=== PATIENT | female | born 1960 | race Caucasian/White ===

== ENCOUNTER 2017-06-05 22:40 | Emergency (ER) | payer OTHER, SELFPAY ==
[2017-06-05 22:42] VITALS: BP 154/85; PULSE 88; RESP 17; TEMP 36.3; O2SAT 95; BMI 22.5
[2017-06-05 23:35] LABS: Bacteria 0 SEEN /hpf (None Seen); Red Blood Cells-Urine 0 SEEN /hpf (0-5); Squamous Epithelial Cells - UA 0 SEEN /hpf (5-10)
[2017-06-05 23:37] LABS: Absolute Lymphocyte Count 0.86 X10^3/ul (0.83-4.51); Absolute Neutrophil Count 4.3 X10^3/uL (2.0-7.7); Basophil# 0.03 X10^3/uL; Basophil% 0.5 % (0-1); Eosinophil# 0.08 X10^3/uL; Eosinophils% 1.3 % (0-5); Hematocrit 41.4 % (37-47); Lymphocyte # 0.86 X10^3/ul (4.0); Lymphocyte % 14.5 % (19-41); Mean Corp Hgb Conc 33.8 g/gl (32-36); Mean Corpuscular Volume 88.7 fL (81-99); Mean Platelet Vol. 9.2 fl (6.2-12.0); Monocyte# 0.66 X10^3/uL; Monocyte% 11.1 % (0-10); Neutrophil # 4.31 X10^3/uL (2.7-7.7); Neutrophil % 72.6 % (47-70); Platelet Count 423 K/mm3 (150-450); RBC Distribution Width CV 13.8 % (11.6-14.6); RBC Distribution Width SD 44.5 fl (35.1-43.9); Red Blood Count 4.67 M/mm3 (4.2-5.4); White Blood Count 5.9 K/mm3 (4.4-11.0)
[2017-06-05 23:37] LABS: Color, Urine Yellow (Yellow); Glucose, Dipstick Normal (Normal); Ketone-Dipstick Negative (Negative); Leukocyte Esterase-Dipstick 100 /ul (Negative); Nitrite-Dipstick Negative (Negative); Occult Blood-Urine Negative /ul (Negative); Protein-Dipstick 15 mg/dl (Negative); Urine Clarity Clear (Clear); Urine Urobilinogen Normal (Normal)
[2017-06-05 23:43] LABS: POSITIVE COUNT NO; POSITIVE DIFFERENTIAL NO; POSITIVE MORPHOLOGY NO
[2017-06-05 23:50] LABS: Urine Bilirubin Dipstick 3 mg/dL (Negative)
[2017-06-05 23:51] LABS: Hyaline Cast 10-25 SEEN /lpf (0-5); Mucous, Urine 2+ /hpf (<or=2+); White Blood Cells 0-5 SEEN /hpf (0-5)
[2017-06-05 23:58] LABS: Anion Gap 5 (5-15); BUN 15 mg/dL (7-18); BUN/Creat Ratio 25.5 RATIO (10-20); Calcium,Total 7.8 mg/dL (8.5-10.1); Chloride 111 mmol/L (98-107); Creatinine, Serum 0.59 mg/dL (0.55-1.02); EST Glomerular Filtration Rate 111 mL/min (>60); Est Glom Filt Rate - Afr Amer 135 mL/min (>60); Estimated Creatinine Clearance 104.85 ml/min; Glucose 114 mg/dL (74-106); Potassium 3.7 mmol/L (3.5-5.1); Sodium Level 139 mmol/L (136-145)
[2017-06-06] MEDS: Morphine 4 MG/ML Syringe IV (00:01)
[2017-06-06] MEDS: 0.9% Normal Saline 1,000 ML 1000 ML IV (00:01)
[2017-06-06] MEDS: Ondansetron 4 MG/2 ML Vial IV (00:02)
[2017-06-06 00:06] LABS: AST(SGOT) 20 U/L (15-37); Alanine Aminotransfer ALT/SGPT 32 U/L (13-56); Albumin, Serum 2.5 g/dL (3.2-5.0); Alkaline Phosphatase 159 U/L (45-117); Bilirubin, Direct 0.12 mg/dL (0.00-0.30); Globulin 3.5 g/dL (2.2-4.2); Lipase 136 U/L (73-393)
[2017-06-06 00:46] VITALS: BP 109/69; PULSE 82; RESP 18; O2SAT 95
--- NOTE | 2017-06-06 01:52 | ED.DCSUM_ITS ---
- ER Visit Summary Date of Service: 06/06/17 Chief Complaint: Abdominal pain, diarrhea History of Present Illness: The patient is a 56 F who is otherwise healthy with history of celiac disease and prior cholecystectomy presents to the emergency department with abdominal pain and diarrhea. Patient also had some generalized weakness. The patient states that over the past 4 days, she has had some intermittent cramping abdominal pain. She states she has had multiple episodes of loose watery diarrhea. She denies any blood. She has had 2 episodes of vomiting, but denies any blood or bile. She denies any fevers but has had some chills and sweats. She states she has never had pain like this before. She denies any recent travel. She denies any recent sick contacts. She denies any change in food. The patient takes no daily medication. Physical Examination: Vital signs reviewed General: Well-nourished, well-developed Head: Normocephalic, atraumatic Eyes: Pupils equal and reactive, extraocular muscles intact Neck, supple, no lymphadenopathy Heart: Regular rate and rhythm Respiratory: No distress, clear bilaterally Abdomen: Soft, mildly tender in the midepigastric area without rebound or guarding, hyperactive bowel sounds, no peritoneal signs Back: Nontender Extremities: Nontender, no edema, no cords Skin: Normal color no rash Neuro: Alert and oriented, no focal or lateralizing deficits Test Results: [] Emergency Department Course and Treatment: IV was established. Patient was given fluids, Zofran, and morphine. Her symptoms had completely abated. Screening labs are obtained and are relatively unremarkable. Patient underwent CT of abdomen and pelvis. There is evidence of enteritis and some mesenteric adenopathy. I do feel that this is more likely an infectious diarrhea. The patient does have well water. She denies any recent travel or other exposures. However, given the persistence of her symptoms and abnormal CT I am going to treat her with 3 days of Cipro. Her labs are unremarkable. Her pain is controlled. She has no other significant comorbidities. I do feel that she is safe for outpatient therapy. She will be prescribed antiemetics, antispasmodics , and 3 days of antibiotics. She is counseled on concerning symptoms and reasons to return. The patient will be discharged home. Treatment Plan: [] Disposition: Discharge Impression:. Infectious enteritis This note was generated with [employer] dictation software. It may contain incorrect words, spelling, and punctuation that were not noted in review of the chart prior to signing ED Disposition - Plan for ED Patient: Chief Complaint: Abd Pain Instructions: ED Gastroenteritis Report Pend Prescriptions: Ondansetron [Zofran Odt] 4 mg PO Q8H PRN PRN #10 tab PRN Reason: Nausea Dicyclomine HCl [Bentyl] 20 mg PO TIDAC #20 cap Ciprofloxacin [Cipro] 500 mg PO BID #6 tab Referrals: Rakan Brown, [employer] [Primary Care Provider] -
[2017-06-06] MEDS: Ciprofloxacin 500 MG Tablet PO (02:05)
[2017-06-06] MEDS: Ondansetron ODT 4 MG Tablet PO (02:05)
[2017-06-06] MEDS: Dicyclomine 10 MG Capsule PO ×4 (02:06)
[2017-06-06 02:24] VITALS: BP 116/71; PULSE 64; RESP 18; O2SAT 99
--- NOTE | 2017-06-06 23:35 | CT_ITS ---
STUDY: CT ABDOMEN AND PELVIS WITH CONTRAST REASON FOR EXAM: Female, 56 years old. Abdominal pain, vomiting and diarrhea. RADIATION DOSAGE (If Supplied By Facility): CTDIvol = ( 11.67 ) mGy, DLP = ( 679.94 ) mGycm TECHNIQUE: Transaxial images were obtained from the dome of the diaphragm to the symphysis pubis without oral contrast. 100 ml of Isovue 300 contrast was administered. Sagittal and coronal images were reconstructed. Individualized dose optimization techniques were used for this CT. COMPARISON: Prior comparison studies are not available for review at this time. FINDINGS: There is right middle lobe opacity possibly representing pulmonary fibrosis or atelectasis. Lung bases are otherwise clear. The visualized portions of the heart are within normal limits. Normal liver. There are surgical clips in the gallbladder fossa consistent with a prior cholecystectomy. Normal spleen. Normal pancreas. Normal bilateral adrenal glands. Normal right kidney. Normal left kidney. Normal visualized stomach. There is no evidence for dilated bowel, ascites or pneumoperitoneum. Small bowel has a grossly normal appearance. Primarily fluid appears to be within the colon consistent with history of diarrhea. The appendix is visualized and appears normal. Normal abdominal aorta. Normal inferior vena cava. There are mildly enlarged mesenteric nodes. This is most noticeable within the left lower quadrant. The largest node measures approximately 1.3 cm. Normal urinary bladder. Normal visualized uterus. There is a small umbilical hernia containing fat. The bones appear osteopenic. CT/Abdomen/Pelvis W IV Cont ONLY IMPRESSION: 1. Mesenteric lymphadenopathy. Differential considerations would include infectious and neoplastic etiologies. 2. Fluid-filled bowel likely related to the inflammatory process. Electronically Signed: Grecia George MD at 1:24 EDT , Service support ,
== END 2017-06-06 02:26 | disposition home or self-care (01) ==
LOC: ED 06-06 00:57
PROVIDERS: Emergency Provider Emergency Medicine; Family Provider Nurse Practitioner Family; PCP Nurse Practitioner Family
DX: A09 Infectious gastroenteritis and colitis, unspecified (principal); K90.0 Celiac disease; Z90.49 Acquired absence of other specified parts of digestive tract
CPT/HCPCS: 74177; 80048; 80076; 81001; 83690; 85025; 96361; 96374; 96375; 99284; J7030; Q9967; J2405

== ENCOUNTER → 2023-10-14 | Outpatient (CLI) | payer OTHER, SELFPAY ==
--- NOTE | 2023-10-14 11:56 | RAD_ITS ---
EXAM: XR RIGHT FOOT COMPLETE, 3 OR MORE VIEWS CLINICAL INDICATION: Right foot pain TECHNIQUE: Frontal, lateral and oblique views of the right foot. COMPARISON: No relevant prior studies available. FINDINGS: BONES/JOINTS: Osteopenia. Calcaneal enthesopathy and plantar spur. No acute fracture. No subluxation. Normal alignment. Preservation of the joint space. No sclerotic or destructive changes observed. No definite erosive changes are present. SOFT TISSUES: Diffuse soft tissue swelling. No radiopaque foreign body. RAD/Foot min 3 Views IMPRESSION: Diffuse soft tissue swelling. Osteopenia and degenerative change. No acute osseous findings. Electronically Signed: Eduar Richmond DO at 12:23 EDT ,
== END | disposition home or self-care (01) ==
PROVIDERS: PCP Nurse Practitioner Family; Visit Provider Nurse Practitioner Family
DX: M79.671 Pain in right foot (principal)
CPT/HCPCS: 73630

== ENCOUNTER → 2023-11-08 | Outpatient (CLI) | payer MEDICARE, SELFPAY ==
--- NOTE | 2023-11-08 13:19 | VDLE_ITS ---
Reason For Study: Edema RIGHT LEFT CFV is compressible, spontaneous, phasic, CFV is compressible, spontaneous, phasic, competent and demonstrates normal competent, and demonstrates normal augmentation. augmentation. FV is compressible, spontaneous, phasic, FV is compressible, spontaneous, phasic, competent and demonstrates normal competent and demonstrates normal augmentation. augmentation. POP V is compressible, spontaneous, phasic, POP V is compressible, spontaneous, phasic, competent and demonstrates normal competent and demonstrates normal augmentation. augmentation. T/P Trunk is compressible. T/P Trunk is compressible. PTV is compressible. PTV is compressible. RT PerV is compressible. LT PerV is compressible. SFJ is competent and measures 0.69 cm. SFJ is competent and measures 0.80 cm. GSV proximal thigh measures 0.27x0.28 cm. GSV proximal thigh measures 0.26x0.37 cm. GSV at knee measures 0.26x0.26 cm. GSV at knee measures 0.25x0.28 cm. GSV is competent throughout. GSV is competent throughout. SSV at junction is competent and measures SSV at junction is competent and measures 0.56 cm. 0.40 cm. SSV proximal calf is competent and measures SSV proximal calf is competent and measures 0.28x0.30 cm. 0.44x0.52 cm. Procedure Exam performed in department. Patient was scanned in supine position during reflux assessment. The exam was diagnostic. A preliminary report was called and/or faxed to Dr. Valadez. VL/Venous Duplex US - Fredy Extrem Interpretation Summary Deep veins of the bilateral lower extremities are patent and compressible segme ntally. There is no evidence of bilateral lower extremity deep vein thrombosis. The bilateral great saphenous veins appear patent and compressible segmentally. Negative for reflux bilateral Ordering Physician: Norbert Granado Referring Physician: Rakan Brown NP Performed By: Edilson Avalos RVT and Student
== END | disposition home or self-care (01) ==
PROVIDERS: PCP Nurse Practitioner Family; Referring Provider Student in an Organized Health Care Education/Training Program; Visit Provider Student in an Organized Health Care Education/Training Program
DX: I87.2 Venous insufficiency (chronic) (peripheral) (principal); R60.0 Localized edema; M79.671 Pain in right foot
CPT/HCPCS: 93970